=== PATIENT | female | born 1965 | race Caucasian/White ===

== ENCOUNTER 2016-07-30 18:21 | Emergency (ER) | payer OTHER ==
[~2016-07-30] VITALS: Wt 98.0 kg
[~2016-07-30 18:21] MED LIST: CALC-649 PO; CETI10CA PO; CIPR500T4 PO; FERR27TA PO; GUAI120S26 PO; IBUP-1542 PO; METR500T PO; PREN1TAB49 PO
[2016-07-30] MEDS ORDERED: IBUPROFEN 800 MG TAB PO ONE (20:00)
[2016-07-30] MEDS ORDERED: LIDOCAINE/MYLANTA 40 ML BTL PO ONE (20:00)
[2016-07-30 20:50] LABS: URINE BLOOD (Dip) POC 2+ (NEGATIVE)
--- NOTE | 2016-07-30 21:18 | RADRPT ---
PROCEDURE: US Pelvis. CLINICAL INDICATION: Abnormal vaginal bleeding. TECHNIQUE: The pelvis was evaluated with transabdominal and transvaginal sonography in the axial a nd sagittal planes. COMPARISON: No prior study is available for comparison. FINDINGS: Uterus: 11.0 x 9.0 x 7.5 cm. Endometrium: 6.8 mm. Right ovary: Not visualized. Left ovary: 2.6 x 1.0 x 1.7 cm. Uterine masses: There is a posterior hyperechoic mass in the uterus measuring 3.9 x 3.8 x 2.9 cm con sistent with a fibroid. Several smaller fibroids are also present in the uterus. Ovarian masses: None. Color Doppler and pulsed Doppler sonography demonstrate normal flow to the ova travon. Other pelvic masses: None. Free fluid: None. IMPRESSION: 1. The uterus is enlarged and heterogeneous with multiple fibroids. The largest measures 3.9 cm in maximal dimension. 2. Right ovary not visualized. 3. Otherwise normal pelvic ultrasound. RPTAT: QQ .David Holbrook MD, Date Time Electronically viewed and signed by .David Holbrook MD, on 07/30/2016 21:18 .R/
[2016-07-30] MEDS ORDERED: IBUP-1542 PO (21:41)
[2016-07-30 21:49] VITALS: BP 132/76; PULSE 78; RESP 16
--- NOTE | 2016-07-30 21:56 | ERD ---
ER Documentation Chief Complaint Date/Time DATE: 07/30/16 TIME: 21:50 Chief Complaint LEFT LOWER QUAD PAIN SINCE AM NO N/V/D HPI 50-year-old female complaining of left pelvic pain since this morning. Pain is sharp, comes and goes, lasting about 3 minutes each, comes every 3-4 minutes. Patient reports pain radiates from the left pelvic region to the right pelvic. Her LMP was 6 days ago, she is still bleeding slightly. Denies nausea vomiting or diarrhea. Last bowel movement was this morning, which was normal. Denies dysuria. Denies fever or chills. ROS All systems reviewed and are negative except as per history of present illness. Medications Home Meds Active Scripts Ibuprofen* (Motrin*) 600 Mg Tab, 600 MG PO Q6H Y for PAIN AND OR ELEVATED TEMP, #30 TAB Prov:PIYUSH CARRERO NP 07/30/16 Metronidazole* (Flagyl*) 500 Mg Tablet, 500 MG PO TID for 10 Days, TAB do not drink alcohol when taking this medication Prov:LUCIAN NOVA PA-C 11/07/15 Ciprofloxacin Hcl* (Ciprofloxacin Hcl*) 500 Mg Tablet, 500 MG PO BID for 10 Days , TAB Prov:LUCIAN NOVA PA-C 11/07/15 Cetirizine Hcl* (Zyrtec*) 10 Mg Capsule, 10 MG PO DAILY, #30 TAB.CHEW Prov:MERY TONEY NP 04/24/15 Ibuprofen* (Motrin*) 600 Mg Tab, 600 MG PO Q6H Y for PAIN AND OR ELEVATED TEMP, #30 TAB Prov:MERY TONEY NP 04/24/15 Uuqwqiqflvm-W-Qdnrdfhkxc Hb* (Guaifenesin* DM Syrup) 120 Ml Syrup, 10 ML PO Q4H Y for COUGH, #120 ML Prov:MERY TONEY NP 04/24/15 Reported Medications Calcium Carbonate (Calcium) 1 Tab Tablet, 1 TAB PO DAILY 10/28/11 Ferrous Sulfate (Iron) 1 Tab Tablet, 1 TAB PO DAILY 10/28/11 Vits W-Ca,Fe,Fa(<1MG) () 1 Tab Tablet, 1 TAB PO DAILY 10/28/11 Allergies Allergies: Coded Allergies: Penicillins (Verified Allergy, Severe, RASH/FACE SWELLING/DIFFICULTY BREATHING, 11/07/15) PMhx/Soc History of Surgery: Yes (2 C SECTION; HERNIA SURGERY; GALLSTONE REMOVAL, tubal ligation) Anesthesia Reaction: No Hx Neurological Disorder: No Hx Respiratory Disorders: No Hx Cardiac Disorders: Yes (HEART MURMUR ) Hx Psychiatric Problems: No Hx Miscellaneous Medical Probl: No Hx Alcohol Use: No Hx Substance Use: No Hx Tobacco Use: No Smoking Status: Never smoker Physical Exam Vitals Vital Signs Date Time Temp Pulse Resp B/P Pulse Ox O2 Delivery O2 Flow Rate FiO2 07/30/16 21:49 78 16 132/76 98 Room Air 07/30/16 18:30 98.5 95 20 146/65 98 Physical Exam General: Well-developed, well-nourished, conscious and coherent, in no distress Skin: Warm and dry without rash, good texture and turgor Head: Normocephalic without evidence of trauma Eyes: Sclera and conjunctivae normal; pupils equal, round, and reactive to light; extraocular movements are intact Neck: Supple without meningismus or adenopathy. Carotids are equal. Trachea midline. No bruits or JVD Chest: Normal AP diameter. Good expansion without retractions. Nontender. Lungs are clear to auscultate bilaterally with good tidal volume Heart: Regular rate and rhythm. No murmur, rub, or gallops heard Abdomen: Soft and nontender without masses, guarding, or rebound. Bowel sounds are active. No hepatosplenomegaly Back: Without spinal or CVA tenderness Pelvis: Suprapubic tenderness Extremities: Full range of motion. Good strength bilaterally. No clubbing, cyanosis, or edema. Peripheral pulses are intact. Sensation intact Neuro: Alert and oriented 4, GCS 15. Cranial nerves grossly intact. Motor and sensory exams nonfocal. Moves all extremities. Speech clear. Gait normal Results 24 hrs Laboratory Tests Test 07/30/16 20:52 Bedside Urine pH (LAB) 7.0 Bedside Urine Protein (LAB) Negative Bedside Urine Glucose (UA) Negative Bedside Urine Ketones (LAB) Negative Bedside Urine Blood 2+ Bedside Urine Nitrite (LAB) Negative Bedside Urine Leukocyte Esterase (L Negative Current Medications Medications (Trade) Dose Ordered Sig/Jamie Route PRN Reason Start Time Stop Time Status Last Admin Dose Admin Ibuprofen (Motrin) 800 mg ONCE ONCE PO 07/30/16 20:00 07/30/16 20:01 DC 07/30/16 19:48 Miscellaneous Medication (Gi Cocktail (2)) 40 ml ONCE ONCE PO 07/30/16 20:00 07/30/16 20:01 DC PROCEDURE: US Pelvis. CLINICAL INDICATION: Abnormal vaginal bleeding. TECHNIQUE: The pelvis was evaluated with transabdominal and transvaginal sonography in the axial and sagittal planes. COMPARISON: No prior study is available for comparison. FINDINGS: Uterus: 11.0 x 9.0 x 7.5 cm. Endometrium: 6.8 mm. Right ovary: Not visualized. Left ovary: 2.6 x 1.0 x 1.7 cm. Uterine masses: There is a posterior hyperechoic mass in the uterus measuring 3.9 x 3.8 x 2.9 cm consistent with a fibroid. Several smaller fibroids are also present in the uterus. Ovarian masses: None. Color Doppler and pulsed Doppler sonography demonstrate normal flow to the ovaries. Other pelvic masses: None. Free fluid: None. IMPRESSION: 1. The uterus is enlarged and heterogeneous with multiple fibroids. The largest measures 3.9 cm in maximal dimension. 2. Right ovary not visualized. 3. Otherwise normal pelvic ultrasound. RPTAT: QQ .Daivd Holbrook MD, MD Date Time Electronically viewed and signed by .David Holbrook MD, MD on 07/30/2016 21:18 .R/ CC: PIYUSH CARRERO LOW VISION THERAPIST Procedures/MDM Well-appearing 50-year-old female presented ED with pelvic pain 1 day. Urine test was negative. Urine dip has 2+ blood, otherwise negative. No sign of UTI. The blood is likely from vaginal bleeding. Pelvic ultrasound was also obtained, which showed multiple fibroids in the uterus the largest is about 3 cm in size. Advised patient of the testing results. Patient stated that she already know that she has fibroids. Likely patient pelvic pain is due to fibroids. Low suspicion for ovarian torsion, ovarian cyst, ectopic . 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 Patient appears well, stable for discharge and outpatient management. Medical decision making shared with patient and family. Education provided to patient and family. Patient and family expressed understanding of the plan. Medications on discharge: Ibuprofen. Follow-up: Primary care provider in 2-3 days or return to ED if worse. Departure Diagnosis: Primary Impression: Pelvic pain Additional Impression: Fibroids Uterine leiomyoma location: unspecified location Qualified Code: D25.9 - Uterine leiomyoma, unspecified location Condition: Good Patient Instructions: Uterine Fibroids Additional Instructions: Call your primary care doctor TOMORROW for an appointment during the next 2-3 days.See the doctor sooner or return here if your condition worsens before your appointment time. PIYUSH CARRERO NP July 30, 2016 21:56
== END 2016-07-30 21:50 | disposition home or self-care (01) ==
LOC: FTE 18:21
DX: R10.2 Pelvic and perineal pain (principal); D25.9 Leiomyoma of uterus, unspecified
CPT/HCPCS: 76830; 76856; 81003

== ENCOUNTER 2016-08-17 18:24 | Emergency (ER) | payer OTHER ==
[~2016-08-17] VITALS: Ht 160 cm; Wt 90.0 kg
[2016-08-17 18:25] VITALS: Ht 160 cm; Wt 90.0 kg
[2016-08-17] MEDS ORDERED: KETOROLAC 60 MG INJ IM STA (19:33)
[2016-08-17 19:49] LABS: URINE BLOOD (Dip) POC 1+ (NEGATIVE)
--- NOTE | 2016-08-17 21:18 | RADRPT ---
PROCEDURE: US Pelvis. CLINICAL INDICATION: Pelvic pain. TECHNIQUE: Multiple transabdominal and transvaginal sonographic images of the pelvis were obtained . COMPARISON: Pelvic ultrasound 08/01/2016. CT abdomen/pelvis 11/07/2015. FINDINGS: The uterus is globular in shape, enlarged and anteverted in position measuring approximately 12.1 x 8.7 x 11.4 cm (623 cc). The visualized portion of the endometrium measures 6 mm in thickness. The endometrial/myometrial junction is not well defined on the majority of the images. Alternating echo genic bands emanate from the central portion of the uterus suggesting the presence of adenomyosis. A 5.3 cm structure is measured within the posterior uterine body and may reflect a fibroid or adenom yoma. This is unchanged from prior examination. The cervix is normal. There is no free pelvic flui d. The left ovary measures 5.2 x 3.2 x 3.6 cm (32 cc). Fine detail of the left ovary is not observed a s a result of poor sound penetration. The right ovary is not visualized. There is no free pelvic f luid. IMPRESSION: Enlarged globular shaped uterus with imaging characteristics suggestive of adenomyosis. There is a 5 .3 cm fibroid versus adenomyoma within the posterior uterine body. The uterus is grossly unchanged appearance when compared to prior examinations. If clinically indicated, confirmation of adenomyosi s may be obtained with outpatient MRI. RPTAT: HLST .Dione Liu MD, Date Time Electronically viewed and signed by .Dione Liu MD, on 08/17/2016 21:17 .T/
[2016-08-17] MEDS ORDERED: TRAM50TA2 PO (22:21)
--- NOTE | 2016-08-17 22:28 | ERD ---
ER Documentation Chief Complaint Date/Time DATE: 08/17/16 TIME: 22:23 Chief Complaint HX FIBROIDS, SEEN HER BEFORE C/O SAME PELVIC PAIN HPI This is a 42-year-old female with a well-known history of fibroids. Patient was seen here previously for fibroids and states that her pain has returned. Pain is located in the left lower pelvic region and is gotten significantly worse over the last day. Patient states that pain radiates down her legs. Patient denies any urinary frequency or dysuria. She denies any vaginal discharge. She denies any fevers or chills. She denies any other abdominal pain. She does admit to nausea however denies vomiting or diarrhea. ROS 12 point review of systems was done, all negative except per HPI. Medications Home Meds Active Scripts Tramadol HCl (Tramadol HCl) 50 Mg Tablet, 50 MG PO Q4 Y for PAIN, #20 TAB Prov:PIERCE PANDYA 08/17/16 Ibuprofen* (Motrin*) 600 Mg Tab, 600 MG PO Q6H Y for PAIN AND OR ELEVATED TEMP, #30 TAB Prov:PIYUSH CARRERO NP 07/30/16 Metronidazole* (Flagyl*) 500 Mg Tablet, 500 MG PO TID for 10 Days, TAB do not drink alcohol when taking this medication Prov:LUCIAN NOVA PA-C 11/07/15 Ciprofloxacin Hcl* (Ciprofloxacin Hcl*) 500 Mg Tablet, 500 MG PO BID for 10 Days , TAB Prov:LUCIAN NOVA PA-C 11/07/15 Cetirizine Hcl* (Zyrtec*) 10 Mg Capsule, 10 MG PO DAILY, #30 TAB.CHEW Prov:MERY TONEY NP 04/24/15 Ibuprofen* (Motrin*) 600 Mg Tab, 600 MG PO Q6H Y for PAIN AND OR ELEVATED TEMP, #30 TAB Prov:MERY TONEY NP 04/24/15 Ijyflsatlfc-G-Fdsccxznpn Hb* (Guaifenesin* DM Syrup) 120 Ml Syrup, 10 ML PO Q4H Y for COUGH, #120 ML Prov:MERY TONEY NP 04/24/15 Reported Medications Calcium Carbonate (Calcium) 1 Tab Tablet, 1 TAB PO DAILY 10/28/11 Ferrous Sulfate (Iron) 1 Tab Tablet, 1 TAB PO DAILY 10/28/11 Vits W-Ca,Fe,Fa(<1MG) () 1 Tab Tablet, 1 TAB PO DAILY 10/28/11 Allergies Allergies: Coded Allergies: Penicillins (Verified Allergy, Severe, RASH/FACE SWELLING/DIFFICULTY BREATHING, 08/17/16) PMhx/Soc History of Surgery: Yes (c sec x2, pietro, hernia repair) Anesthesia Reaction: No Hx Neurological Disorder: No Hx Respiratory Disorders: No Hx Cardiac Disorders: Yes (murmur) Hx Psychiatric Problems: No Hx Miscellaneous Medical Probl: Yes (fibroids) Hx Alcohol Use: No Hx Substance Use: No Hx Tobacco Use: No Physical Exam Vitals Vital Signs Date Time Temp Pulse Resp B/P Pulse Ox O2 Delivery O2 Flow Rate FiO2 08/17/16 18:25 98.1 78 20 141/63 99 Physical Exam GENERAL: The patient is well developed and appropriate for usual state of health , in no apparent distress. HEENT: Atraumatic. CHEST: Clear to auscultation bilaterally. There are no rales, wheezes or rhonchi. HEART: Regular rate and rhythm. No murmurs, clicks, rubs or gallops. ABDOMEN: Soft, nontender and nondistended. Good bowel sounds. No rebound or guarding. No gross peritonitis. No gross organomegaly or masses. No Decker sign or McBurney point tenderness. Patient is tender to palpation in the left lower pelvic area. BACK: No midline or flank tenderness. NEURO: Alert and oriented. Results 24 hrs Laboratory Tests Test 08/17/16 19:52 Bedside Urine pH (LAB) 5.5 Bedside Urine Protein (LAB) Negative Bedside Urine Glucose (UA) Negative Bedside Urine Ketones (LAB) Negative Bedside Urine Blood 1+ Bedside Urine Nitrite (LAB) Negative Bedside Urine Leukocyte Esterase (L Trace Current Medications Medications (Trade) Dose Ordered Sig/Jamie Route PRN Reason Start Time Stop Time Status Last Admin Dose Admin Ketorolac Tromethamine (Toradol) 60 mg ONCE STAT IM 08/17/16 19:33 08/17/16 19:35 DC 08/17/16 19:51 Procedures/MDM This is a 50-year-old female presents to the ER with pelvic pain. Differential diagnosis includes but is not limited to; fibroids, endometriosis, ovarian torsion, ovarian cyst, tubo-ovarian abscess, UTI, pyelonephritis, STI, pelvic inflammatory disease. Patient likely has fibroids as seen on ultrasound and her past medical history. Suspicion for ovarian torsion is low. Suspicion for tubo-ovarian abscess or pelvic inflammatory disease is low. Patient is afebrile and extremely well-appearing. There is no evidence of urinary tract infection. Patient was given Toradol in the ER without any complications and this improved her pain. Patient will be sent home with tramadol. She needs to follow-up with her primary care doctor within 1-2 days return to ER sooner if symptoms worsen. My medical decision making was shared with the patient she understands and agrees with plan. Departure Diagnosis: Primary Impression: Fibroid Condition: Stable Patient Instructions: What Are Fibroids? Additional Instructions: Llame al doctor MAANA y gil eduardo GERALDO PARA DENTRO DE 1-2 DENSON.Dgale a la secretaria que nosotros le instruimos hacer esta geraldo.Avise o llame si arce condicin se empeora antes de la geraldo. Regresa aqui si peor o no mejor. PIERCE PANDYA Aug 17, 2016 22:28
[2016-08-17 22:44] VITALS: BP 144/71; PULSE 77; RESP 20; TEMP 98.1
== END 2016-08-17 22:44 | disposition home or self-care (01) ==
LOC: FTE 18:24
DX: D21.9 Benign neoplasm of connective and other soft tissue, unspecified (principal)
CPT/HCPCS: 76830; 76856; 81003; J1885; 96372